=== PATIENT | male | born 1990 | race African-American/Black ===

== ENCOUNTER 2021-01-04 23:04 | Emergency (ER) | payer SELFPAY ==
[~2021-01-04] VITALS: Ht 175.3 cm; Wt 73.9 kg
[2021-01-04] MEDS ORDERED: EPINEPHrine 1mg/1ml Amp IM ONE (23:30)
[2021-01-04] MEDS ORDERED: EPIPEN 2-P0.3 MG/0.3 IM (23:37)
[2021-01-04] MEDS ORDERED: BENADRYL ALLERG25 M1 PO (23:37)
--- NOTE | 2021-01-04 23:37 | Emergency Room Report ---
History of Present Illness General Chief Complaint: Allergic Reaction Source: Patient Present Illness HPI 30-year-old male with history of childhood atopy presents to the emergency department after eating "a new beef product" at a [employer] restaurant 2 hours prior to arrival. Patient states he has a long history of allergies as a child and usually takes Benadryl to alleviate his symptoms. He took two 25 mg tablets of Benadryl prior to arrival which has helped with his itchy skin rash, however states that he feels mild shortness of breath. He denies any significant tongue swelling, stridor, drooling, chest pain, nausea, vomiting, diarrhea, fever or any other symptoms. He denies history of intubation. The patient's symptoms were gradual onset, severity was moderate, duration since 2 hours. Quality: Itchy rash Past medical history: Atopy Past surgical history: Denies Smoking: Denies Alcohol use: ++occasional Drug use: Denies Review of systems: CONST: No fevers or chills, No night sweats PULMONARY: No productive cough, No shortness of breath CARDIAC: No chest pain, No palpitations GI: No vomiting, No diarrhea , No melena_or_BRBPR : No dysuria, No hematuria, No discharge NEURO: No new_focal_weakness_or_numbness, No confusion, No vision changes 14 point Review of Systems is otherwise negative except per HPI Physical Exam: GENERAL: Awake_alert_ nontoxic, no acute distress Spo2 96% on RA -normal EYES: Extraocular muscles are intact. Conjunctivae clear. Lids without swelling ENT: External nose and ear normal_in_appearance. Oropharynx clear. Head_atraumatic, Moist_oral_mucosa No angioedema/lip/tongue swelling. No soft palate swelling NECK: No JVD. No meningismus. No thyromegaly. Supple. Trachea midline RESP: Normal respiratory effort. Symmetric rise. No stridor. Clear_to_auscul tation_No_rales_No_wheezes No drooling or hoarse voice. CARDIAC: Regular rate and regular rhytm. No_significant pedal edema. ABDOMEN: Soft. Nondistended. Nontender_No_rebound_or_guarding. MSK: Normal muscle tone, without rigidity. Extremities without asymmetric deformity or swelling. SKIN: Urticarial rash to the right anterior trunk/axillary region as well as left anterior trunk/axillary region that are noncircumferential. No petechial rash. NEUROLOGIC: Alert, oriented x3. Motor_and_sensation_grossly_intact. No truncal ataxia. Gait_normal Psych: Normal mood and affect, normal judgment and insight - COORDINATION OF CARE Case was discussed with: Patient Any labs and imaging that were ordered were interpreted as part of the medical decision making: Medical Decision Making/Plan: Initial VSS are unremarkable. Airway is intact with no stridor, drooling, or increased WOB. No oral, tongue or lip swelling noted. Patient appears to be presenting with mild to moderate allergic reaction, there is no evidence of angioedema, no oral involvement, no difficulty breathing or nausea vomiting. Patient is nontoxic and well-appearing the patient is tolerating fluids. The findings are minimal and due to nonprogression of symptoms here the patient is safe to discharge home. The patient feels comfortable with plan and will return immediately if symptoms begin to worsen. Patient given a dose of steroids and epi pen x 1 here in the emergency department. He was observed for 2 hours after EpiPen with no recurrent symptoms. Urticaria resolved Patient will be discharged with an EpiPen and Benadryl. Patient was instructed to avoid all potential allergic stimuli in the future The patient was instructed to avoid potential precipitating factor and to follow up with their regular physician for referral to lawn care specialist for definitive allergy testing. Pertinent results reviewed with the patient. I educated the patient on the current treatment plan including the risks, benefits, and alternatives. I also discussed the extent and limitations of the current evaluation. The patient expressed understanding and agreement with plan. I recommended PMD follow-up within 1-2 days. Also advised that the patient return to the Emergency Department as soon as possible if they experience any new, persistent, or worsening symptoms. 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 Nursing Documentation-PMH Past Medical History: No Stated History Physical Exam Vital Signs Date Time Temp Pulse Resp B/P (MAP) Pulse Ox O2 Delivery O2 Flow Rate FiO2 01/04/21 23:08 98.8 91 18 152/97 (115) 96 Room Air Sp02 EP Interpretation: reviewed, normal Medical Decision Making Diagnostic Impression: Primary Impression: Allergic reaction Additional Impressions: Urticaria Reaction to food Reevaluation Time: 01:00 Last Vital Signs Date Time Temp Pulse Resp B/P (MAP) Pulse Ox O2 Delivery O2 Flow Rate FiO2 01/04/21 23:08 98.8 91 18 152/97 (115) 96 Room Air Status: improved Disposition: HOME, SELF-CARE Admit Decision Time: 02:00 Condition: Stable Scripts Diphenhydramine Hcl (BENADRYL ALLERGY) 25 Mg Tablet 25 MG PO QID for allergy for 7 Days, #28 TAB Prov: Nelda Xiao D.O. 01/04/21 Epinephrine (Epipen 2-Ino) 0.3 Mg/0.3 Ml Auto.injct 0.3 MG IM ONCE for anaphylaxis for 1 Day, #1 EA Prov: Nelda Xiao D.O. 01/04/21 Patient Instructions: Allergies, [id number], Epinephrine injection (Auto- injector) Additional Instructions: Instructions for patient/chronic disease epidemiologist: Follow up with your physician in 1-2 days. Avoid all potential allergic stimuli. Keep your EpiPen on you in case of severe allergic reaction. Only administer in case of anaphylaxis or severe allergy as we have discussed Follow-up with your doctor sooner if your condition requires a more timely clinical reevaluation. Return to the emergency department immediately if you feel that your condition is worsening or if you have any new or concerning symptoms. Review your discharge instructions and take any prescriptions given as instructed. [facility] PROVIDES FREE OR LOW-COST HEALTH SERVICES TO PEOPLE WHO CAN SHOW PROOF THAT THEY LIVE IN [facility]. TO FIND MORE CLINICS PARTNERED WITH [facility] TO PROVIDE SERVICE, PLEASE CALL . Nelda Xiao D.O. Jan 04, 2021 23:37
[2021-01-04 23:39] VITALS: BP 152/97
--- NOTE | 2021-01-05 01:06 | NUR ---
ER DISCHARGE NOTE: Patient is cleared to be discharged per ERMD, pt is aox4, on room air, with stable vital signs. pt was given dc and prescription instructions, pt was able to verbalize understanding, pt id band and iv site removed without complications. pt is able to ambulate with steady gait. pt took all belongings.
== END 2021-01-05 01:06 | disposition home or self-care (01) ==
LOC: EMR 23:35
DX: T78.40XA Allergy, unspecified, initial encounter (principal); X58.XXXA Exposure to other specified factors, initial encounter; L50.9 Urticaria, unspecified; Z91.018 Allergy to other foods
CPT/HCPCS: 96372; 99283; J0171; J8540